=== PATIENT | male | born 1965 ===

== ENCOUNTER → 2021-02-27 | Outpatient (CLI) | payer OTHER | END | disposition home or self-care (01) | LOC: PPH VACUNA → EDBD | DX: Z23 Encounter for immunization (principal) ==

== ENCOUNTER → 2021-03-20 23:24 | Outpatient (CLI) | payer OTHER | END | disposition home or self-care (01) | LOC: PPH VACUNA 23:24 | DX: Z23 Encounter for immunization (principal) ==